=== PATIENT | female | born 1985 | race Caucasian/White ===

== ENCOUNTER 2017-02-08 09:53 | Outpatient (CLI) | payer BC ==
--- NOTE | 2017-02-08 12:26 | DIAGNOSTIC IMAGING REPORT ---
PROCEDURE: XR UPPER GI WITH AIR INDICATION: Upper esophageal dysphagia. Heartburn. TECHNIQUE: Double contrast study. Fluoroscopy time, 3.5 minutes; 2266.80 mGy. 51 fluoroscopic images (including cinefluoroscopy). COMPARISON: None. FINDINGS: Pharyngoesophagus is normal and there are no constricting or polypoid lesions. No evidence of diverticulum. There is moderate gastroesophageal reflux. Thoracic esophagus is otherwise normal. Stomach and duodenum are normal. Status post cholecystectomy (surgical clips). IMPRESSION: 1. Normal pharyngoesophagus. 2. Moderate gastroesophageal reflux. 3. Otherwise negative upper GI. 4. Findings discussed with the patient.
== END 2017-02-08 23:00 ==
LOC: XR SRH 09:53
DX: K21.9 Gastro-esophageal reflux disease without esophagitis (principal)